=== PATIENT | female | born 1945 | race American Indian/Alaskan Native ===

== ENCOUNTER 2021-06-08 01:33 | Emergency (ER) | payer MEDICARE, MEDICAID ==
[2021-06-08 01:52] VITALS: BP 151/80
[2021-06-08] MEDS ORDERED: BACITRACIN ZINC OINT 1 PACKET TOP STA (02:08)
[2021-06-08] MEDS ORDERED: KETOROLAC 30 MG/ML VIAL IM STA (02:08)
--- NOTE | 2021-06-08 02:11 | ED Physician Documentation ---
History of Present Illness - Stated complaint Stated Complaint: R KNEE PX - Chief complaint Chief Complaint: Ext Problem - History obtained from History obtained from: Patient - Additonal information Additional information: 76yF with frequent ED use (see BRANDYN) p/w chronic R knee pain, worsening acutely tonight because she is traveling from off [place] and states she forgot her marijuana edibles that help treat her osteoarthritis. aching, constant, 9/10 pain, worse after the long car ride. patient also concerned about blister on L first toe. Review of Systems Skin: reports: Other (blister) Musculoskeletal: reports: Joint pain PD PAST MEDICAL HISTORY - Past Medical History Past Medical History: Yes Cardiovascular: Hypertension, High cholesterol Endocrine/Autoimmune: Type 2 diabetes Musculoskeletal: Osteoarthritis Other Past Medical History: Survivor Non Hodgkin's Lymphoma - Past Surgical History Past Surgical History: Yes General: Appendectomy Ortho: Arthroscopic surgery, Carpal Tunnel surgery /[employer]: Hysterectomy - Present Medications Home Medications: Ambulatory Orders Medication Instructions Recorded Confirmed Amitriptyline [Elavil] 10 mg PO DAILY 06/08/21 06/08/21 Amlodipine Besylate [Norvasc] 2.5 mg PO DAILY 06/08/21 06/08/21 Cefpodoxime Proxetil [Vantin] 100 mg PO Q12H 06/08/21 06/08/21 Gabapentin [Neurontin] 400 mg PO QID 06/08/21 06/08/21 Glimepiride [Amaryl] 2 mg PO DAILY 06/08/21 06/08/21 Irbesartan [Avapro] 300 mg PO DAILY 06/08/21 06/08/21 Metformin HCl [Glumetza] 500 mg PO BID 06/08/21 06/08/21 Metoprolol Tartrate [Lopressor] 50 mg PO DAILY 06/08/21 06/08/21 hydrALAZINE [Apresoline] 25 mg PO DAILY 06/08/21 06/08/21 - Allergies Allergies/Adverse Reactions: Allergies Allergy/AdvReac Type Severity Reaction Status Date / Time celecoxib [From Celebrex] Allergy Anaphylaxis Verified 06/08/21 01:44 iodine Allergy Anaphylaxis Verified 06/08/21 01:44 Sulfa (Sulfonamide Allergy Anaphylaxis Verified 06/08/21 01:44 Antibiotics) - Social History Does the pt smoke?: No Smoking Status: Never smoker Does the pt drink ETOH?: No Does the pt have substance abuse?: No - Immunizations Immunizations are current?: Yes - POLST Patient has POLST: No PD ED PE NORMAL - Vitals Vital signs reviewed: Yes - General General: Alert and oriented X 3, No acute distress, Well developed/nourished - HEENT HEENT: Atraumatic, PERRL, EOMI - Neck Neck: Supple, no meningeal sign - Derm Derm: Normal color, Warm and dry, Other (blister to L first toe) - Extremities Extremities: Other (R knee discomfort with ROM. tender with valgus and varus stress. negative josefina and anterior drawer sign. 2+ BL DP pulses. normal capillary refill and movement) - Neuro Neuro: No motor deficit Results - Vitals Vitals: Vital Signs - 24 hr 06/08/21 01:35 Temperature 36.6 C Heart Rate 91 Respiratory 18 Rate Blood Pressure 151/80 H O2 Saturation 97 Oxygen O2 Source Room air PD MEDICAL DECISION MAKING - ED course ED course: 76yF p/w acute on chronic R knee pain 2/2 OA. no traumatic cause. She has had relief with toradol in the past. does endorse some issues with UTI/urinary retention and possible kidney problems but she takes naproxen at home at present and thinks she can take NSAIDs. Advised her that one time dose should be okay since she already takes NSAIDs at home but that there is small risk of kidney injury with toradol. patient voices understanding and shared decision made to treat and reevaluate. Patient with improvement s/p toradol. also c/o L lower back pain in muscular distribution. no CVA ttp. offered additional medication for pain relief however patient now desires to go back to her hotel and get some rest. return precautions given. plan to f/u with pmd. Departure - Departure Disposition: 01 Home, Self Care Clinical Impression: Knee pain, right Condition: Good Instructions: Osteoarthritis, ED JANUSZ Comments: You were seen in the emergency department for arthritis pain and given toradol, an anti-inflammatory. Please hydrate well and try to drink 8-10 glasses of water daily. Please return if you have any new or worsening symptoms or other concerns. Follow up with your primary doctor. Nice meeting you, and take care of yourself! Discharge Date/Time: 06/08/21 03:06
== END 2021-06-08 03:06 | disposition home or self-care (01) ==
LOC: ED 01:33
DX: M17.11 Unilateral primary osteoarthritis, right knee (principal); M54.50 Low back pain, unspecified; E11.9 Type 2 diabetes mellitus without complications; Z85.72 Personal history of non-Hodgkin lymphomas; I10 Essential (primary) hypertension; E78.00 Pure hypercholesterolemia, unspecified
CPT/HCPCS: 96372; 99283; A9270